=== PATIENT | male | born 1995 | race American Indian/Alaskan Native ===

== ENCOUNTER 2022-01-27 12:04 | Emergency (ER) | payer SELFPAY ==
[2022-01-27 12:17] VITALS: BP 132/80
--- NOTE | 2022-01-27 13:19 | XRay Report ---
CHEST 2 VIEWS INDICATION / CLINICAL INFORMATION: pain in upper chest. COMPARISON: None available. FINDINGS: SUPPORT DEVICES: None. HEART / MEDIASTINUM: No significant abnormality. LUNGS / PLEURA: No significant pulmonary or pleural abnormality. No pneumothorax. ADDITIONAL FINDINGS: No significant additional findings. IMPRESSION: 1. No acute findings. Signer Name: Kurt Bailey MD Signed: 01/27/2022 1:14 PM Workstation Name: [id number]
--- NOTE | 2022-01-27 13:33 | Emergency Department Report ---
ED General Adult HPI - General Chief complaint: Sore Throat Stated complaint: CHEST PAIN/SORETHROAT Time Seen by Provider: 01/27/22 12:27 Source: patient Mode of arrival: Ambulatory Limitations: No Limitations - History of Present Illness Initial comments: This is a 26-year-old male presents the emergency department with chief complaint of sore throat and pain in the anterior neck. Patient reports has been ongoing for approximately 1 week. He denies any injuries. Reports pain is aggravated by swallowing and mildly alleviated by cool liquids. He denies any known past medical history, current medications or known allergies medications. Denies any associated fever, chills, night sweats, headache, dizziness, blurry vision, chest pain or shortness of breath, weakness or any other associated symptoms. Severity scale (0 -10): 0 - Related Data Previous Rx's Medication Instructions Recorded Last Taken Type Amoxicillin/Potassium Clav 1 each PO ONCE #1 01/27/22 Unknown Rx [Augmentin 875-125 Tablet] Nystas/Diphen/Xyl Visc/Mylanta 30 ml MM Q4H PRN #120 ml 01/27/22 Unknown Rx [Magic Mouthwash] methylPREDNISolone [Medrol 4MG 4 mg PO BID #14 01/27/22 Unknown Rx DOSEPAK (21 tabs)] Allergies Allergy/AdvReac Type Severity Reaction Status Date / Time No Known Allergies Allergy Unverified 01/27/22 12:17 ED Review of Systems ROS: Stated complaint: CHEST PAIN/SORETHROAT Other details as noted in HPI Comment: All other systems reviewed and negative Constitutional: denies: chills, fever Eyes: denies: eye pain, eye discharge, vision change ENT: throat pain. denies: ear pain Respiratory: denies: cough, shortness of breath, wheezing Cardiovascular: denies: chest pain, palpitations Endocrine: no symptoms reported Gastrointestinal: denies: abdominal pain, nausea, diarrhea Genitourinary: denies: urgency, dysuria Musculoskeletal: denies: back pain, joint swelling, arthralgia Skin: denies: rash, lesions Neurological: denies: headache, weakness, paresthesias Psychiatric: denies: anxiety, depression Hematological/Lymphatic: denies: easy bleeding, easy bruising ED Past Medical Hx - Past Medical History Previous Medical History?: No - Surgical History Past Surgical History?: No - Family History Family history: no significant - Social History Smoking Status: Never Smoker Substance Use Type: None - Medications Home Medications: Home Medications Medication Instructions Recorded Confirmed Last Taken Type Amoxicillin/Potassium Clav 1 each PO ONCE #1 01/27/22 Unknown Rx [Augmentin 875-125 Tablet] Nystas/Diphen/Xyl Visc/Mylanta 30 ml MM Q4H PRN #120 ml 01/27/22 Unknown Rx [Magic Mouthwash] methylPREDNISolone [Medrol 4MG 4 mg PO BID #14 01/27/22 Unknown Rx DOSEPAK (21 tabs)] ED Physical Exam - General Limitations: No Limitations General appearance: alert, in no apparent distress - Head Head exam: Present: atraumatic, normocephalic - Eye Eye exam: Present: normal appearance, PERRL, EOMI - ENT ENT exam: Present: normal exam, mucous membranes moist, TM's normal bilaterally. Absent: normal orophraynx (Mild erythema the posterior pharynx, no peritonsillar bulging, retropharyngeal bulging or television. Tolerating secretions) - Neck Neck exam: Present: normal inspection - Respiratory Respiratory exam: Present: normal lung sounds bilaterally, chest wall tenderness. Absent: respiratory distress, wheezes, rales, rhonchi, stridor - Cardiovascular Cardiovascular Exam: Present: regular rate, normal rhythm, normal heart sounds. Absent: systolic murmur, diastolic murmur, rubs, gallop - GI/Abdominal GI/Abdominal exam: Present: soft, normal bowel sounds. Absent: distended, tenderness, guarding, rebound, rigid - Rectal Rectal exam: Present: deferred - Extremities Exam Extremities exam: Present: normal inspection, full ROM, normal capillary refill. Absent: tenderness, calf tenderness - Back Exam Back exam: Present: normal inspection, full ROM. Absent: tenderness, CVA tenderness (R) - Neurological Exam Neurological exam: Present: alert, oriented X3, normal gait - Psychiatric Psychiatric exam: Present: normal affect, normal mood - Skin Skin exam: Present: warm, dry, intact, normal color. Absent: rash ED Course Vital Signs 01/27/22 12:15 Temperature 9.5 F L Pulse Rate 103 H Respiratory 18 Rate Blood Pressure 132/80 [Right] O2 Sat by Pulse 99 Oximetry ED Medical Decision Making - Radiology Data Radiology results: report reviewed Patient: KELLIE SEN MR#: [id number] : 1995 Acct:[id number] Age/Sex: 26 / M ADM Date: 01/27/22 Loc: ED Attending Dr: Ordering Physician: ANTONETTE MOORE Date of Service: 01/27/22 Procedure(s): XR chest routine 2V Accession Number(s): [id number] cc: ANTONETTE MOORE Fluoro Time In Minutes: CHEST 2 VIEWS INDICATION / CLINICAL INFORMATION: pain in upper chest. COMPARISON: None available. FINDINGS: SUPPORT DEVICES: None. HEART / MEDIASTINUM: No significant abnormality. LUNGS / PLEURA: No significant pulmonary or pleural abnormality. No pneumothorax. ADDITIONAL FINDINGS: No significant additional findings. IMPRESSION: 1. No acute findings. Signer Name: Kurt Bailey MD Signed: 01/27/2022 1:14 PM Workstation Name: [id number] Transcribed By: BERNABE Dictated By: Kurt Bailey MD Electronically Authenticated By: Kurt Bailey MD Signed Date/Time: 01/27/22 1314 - Medical Decision Making Patient nontoxic in no acute distress. Vital signs are stable. Exam is relatively normal other than some mild posterior pharyngeal erythema. Chest x- ray is ordered and unremarkable. Patient be treated with antibiotics, steroids, Magic mouthwash and supportive treatment recommended return emerge department change worsening symptoms. Verbalized understand the diagnosis, treatment plan and follow-up instructions all his questions were answered. - Differential Diagnosis Strep throat, mononucleosis, pneumonia, acute bronchitis Critical care attestation.: If time is entered above; I have spent that time in minutes in the direct care of this critically ill patient, excluding procedure time. ED Disposition Clinical Impression: Acute pharyngitis Qualifiers: Pharyngitis/tonsillitis etiology: unspecified etiology Qualified Code(s): J02.9 - Acute pharyngitis, unspecified Disposition: 01 HOME / SELF CARE / HOMELESS Is pt being admited?: No Condition: Stable Instructions: Sore Throat, [id number] Prescriptions: Amoxicillin/Potassium Clav [Augmentin 875-125 Tablet] 1 each PO ONCE #1 Nystas/Diphen/Xyl Visc/Mylanta [Magic Mouthwash] 30 ml MM Q4H PRN #120 ml PRN Reason: Sore Throat methylPREDNISolone [Medrol 4MG DOSEPAK (21 tabs)] 4 mg PO BID #14 Referrals: [facility] [Provider Group] - 3-5 Days Forms: Work/School Release Form(ED) Time of Disposition: 13:31
== END 2022-01-27 13:54 | disposition home or self-care (01) ==
LOC: ED 12:04
DX: J02.9 Acute pharyngitis, unspecified (principal)
CPT/HCPCS: 71046; 99283